=== PATIENT | male | born 1960 ===

== ENCOUNTER → 2020-07-13 09:53 | Outpatient (BNVA) | payer BC, SELFPAY | PROVIDERS: PCP Internal Medicine; Referring Provider Internal Medicine; Visit Provider Urology | DX: Z76.89 Persons encountering health services in other specified circumstances (principal) ==

== ENCOUNTER → 2022-03-14 09:42 | Outpatient (BNVA) | payer BC, SELFPAY | PROVIDERS: Visit Provider Urology | DX: N40.1 Benign prostatic hyperplasia with lower urinary tract symptoms (principal); R35.1 Nocturia | CPT/HCPCS: 51798 ==

== ENCOUNTER → 2022-08-23 12:46 | Outpatient (BNVA) | payer BC, SELFPAY | PROVIDERS: PCP Internal Medicine; Visit Provider Urology | DX: Z13.89 Encounter for screening for other disorder (principal) ==

== ENCOUNTER 2023-02-21 08:35 | Outpatient (AMB) | payer BC, SELFPAY ==
--- NOTE | 2023-02-21 08:44 | MHC.OFFVIS ---
Intake Intake Visit Reasons: 6M PSA(set) Senior Administrative Assistant Required: No Allergies No Known Allergies Allergy (Verified 02/21/23 08:44) HPI HPI Comments History of Present Illness Details Hakan is a pleasant male. He is a patient of Dr. Theodore. He seen for the following urologic conditions - lower urinary tract symptoms - elevated PSA Telemedicine Evaluation 15 min Consultation Doximity Saji Video attempted PSA trending upwards Discussed prostate biopsy At this point in time he would prefer alternate option DNA evaluation of urine is available He has an interest in this test Will be ordered 4 week follow-up for review Elevated PSA and BPH He presents for - further evaluation of elevated PSA - in addition to prostate symptoms, particularly nocturia 2-3 times per night Current management is - tamsulosin 0.4 Laboratory investigations include - a total PSA evaluation. 10/02 4.2, 06/04 4.5, 03/06 5.0, 08/07 4.1, 02/04 4.8 Individualized Prostate Cancer Risk Calculator - father had prostate cancer age 70 - 5-10% high risk A TRUS biopsy - has not been performed NEELAM average size firm no nodules Symptoms include - nocturia, weakness of stream which are progressive Overall symptoms are mild Associated conditions dyslipidemia yes Therapeutic plan will be - PSA variable with slow rise PFSH Medical History HTN (hypertension) Hypothyroidism Tubular adenoma Surgical History History of hernia repair History of vasectomy Review of Systems Const All systems reviewed & are unremarkable except as noted in HPI and below Reports no additional complaints Resp Reports no additional complaints GI Reports no additional complaints Reports as per HPI Musc Reports no additional complaints Physical Exam Telemedicine evaluation Appropriate responses Regular breathing rate and rhythm HEENT Head: Yes normal to inspection Ears: hearing grossly normal bilaterally Eyes General: appearance normal, both eyes and all related structures Neck Neck: Yes normal visual inspection Chest Chest palpation & inspection: normal inspection of the chest Resp Effort & Inspection: normal respiratory effort and able to speak in complete sentences Assessment & Plan Assessment & Plan (1) Elevated PSA: Code(s): R97.20 - Elevated prostate specific antigen [PSA] Plan UroDx Patient Instructions: Imaging studies, laboratory and physical exam results were discussed and reviewed in detail. No major barriers to patient understanding were identified. An opportunity to ask questions regarding the treatment plan was provided. All questions were answered. The patient expressed understanding and agreement with the above treatment plan. The patient is aware they should contact our office by phone for worsening of their current condition or the appearance of new urologic symptoms. Compliance is encouraged with any medications and followup testing that is ordered. It is a privilege to participate in the urologic care of your patient. If you have any questions or concerns regarding treatment for the above conditions, or other urologic issues, please do not hesitate to contact me. The office telephone contact is [phone]. This note is constructed using voice recognition software. While every effort has been made to ensure accuracy plug cutter errors may have been included. Yours sincerely, Dr Herbert Moser MD, [facility] - Urology Providers of Expert, Compassionate Care for the Genitourinary System Telehealth Telehealth Location of provider rendering services: practice address Location of patient: address on file Patient Identification confirmed using: Name, : Yes Telehealth method: video Patient verbally consented to treatment: Yes Patient verbally consented to billing insurance company: Yes Patient informed of any privacy concerns related to visit: Yes Coding Level of Care Code Tele Est Pt Level 3 (42399) Diagnoses Elevated PSA R97.20
== END 2023-02-21 10:19 | disposition home or self-care (01) ==
LOC: HO.HUSH 08:35
PROVIDERS: PCP Internal Medicine; Visit Provider Urology
DX: R97.20 Elevated prostate specific antigen [PSA] (principal)
CPT/HCPCS: 99213

== ENCOUNTER → 2023-02-21 08:35 | Outpatient (BNVA) | payer BC, SELFPAY | PROVIDERS: PCP Internal Medicine; Visit Provider Urology ==

== ENCOUNTER 2023-03-28 09:15 | Outpatient (AMB) | payer BC, SELFPAY ==
--- NOTE | 2023-03-28 09:33 | A.OFFVIS_ITS ---
Intake Intake Visit Reasons: 1m follow up Intake Note: Patient is present for Telephone Follow up Urology Med: None Antibiotic Allergy: None Blood Thinner: None Ph [facility]: [facility] Allergies No Known Allergies Allergy (Verified 03/28/23 09:34) HPI HPI Comments History of Present Illness Details Hakan is a pleasant male. He is a patient of Dr. Theodore. He seen for the following urologic conditions - lower urinary tract symptoms - elevated PSA Telemedicine Evaluation 15 min Consultation Doximity Saji Video attempted ExoDX of urine perform Low risk PSA 6m Elevated PSA and BPH He presents for - further evaluation of elevated PSA - in addition to prostate symptoms, particularly nocturia 2-3 times per night Current management is - tamsulosin 0.4 Laboratory investigations include - a total PSA evaluation. 10/02 4.2, 06/04 4.5, 03/06 5.0, 08/07 4.1, 02/04 4.8 Individualized Prostate Cancer Risk Calculator - father had prostate cancer age 70 - 5-10% high risk UroDX - 03/07 15 - low risk A TRUS biopsy - has not been performed NEELAM average size firm no nodules Symptoms include - nocturia, weakness of stream which are progressive Overall symptoms are mild Associated conditions dyslipidemia yes Therapeutic plan will be - PSA variable with slow rise PFSH Medical History Hypothyroidism Tubular adenoma HTN (hypertension) Surgical History History of hernia repair History of vasectomy Review of Systems Const All systems reviewed & are unremarkable except as noted in HPI and below Reports no additional complaints Resp Reports no additional complaints GI Reports no additional complaints Reports as per HPI Musc Reports no additional complaints Physical Exam Telemedicine evaluation Appropriate responses Regular breathing rate and rhythm HEENT Head: Yes normal to inspection Ears: hearing grossly normal bilaterally Eyes General: appearance normal, both eyes and all related structures Neck Neck: Yes normal visual inspection Chest Chest palpation & inspection: normal inspection of the chest Resp Effort & Inspection: normal respiratory effort and able to speak in complete sentences Assessment & Plan Assessment & Plan (1) Nocturia associated with benign prostatic hyperplasia: Code(s): N40.1 - Benign prostatic hyperplasia with lower urinary tract symptoms; R35.1 - Nocturia (2) Elevated PSA: Code(s): R97.20 - Elevated prostate specific antigen [PSA] Plan Six month follow-up bladder ultrasound PSA Orders: Orders US bladder 6 Months N40.1 - Benign prostatic hyperplasia with lower urinary tract symptoms, R35.1 - Nocturia, R39.12 - Poor urinary stream PSA,Total (Free>4and<10) 6 Months N40.1 - Benign prostatic hyperplasia with lower urinary tract symptoms, R35.1 - Nocturia Patient Instructions: Imaging studies, laboratory and physical exam results were discussed and reviewed in detail. No major barriers to patient understanding were identified. An opportunity to ask questions regarding the treatment plan was provided. All questions were answered. The patient expressed understanding and agreement with the above treatment plan. The patient is aware they should contact our office by phone for worsening of their current condition or the appearance of new urologic symptoms. Compliance is encouraged with any medications and followup testing that is ordered. It is a privilege to participate in the urologic care of your patient. If you have any questions or concerns regarding treatment for the above conditions, or other urologic issues, please do not hesitate to contact me. The office telephone contact is [phone]. This note is constructed using voice recognition software. While every effort has been made to ensure accuracy textile clothing and footwear mechanic errors may have been included. Yours sincerely, Dr Herbert Moser MD, [facility] - Urology Providers of Expert, Compassionate Care for the Genitourinary System Telehealth Telehealth Location of provider rendering services: practice address Location of patient: address on file Patient Identification confirmed using: Name, : Yes Telehealth method: video Patient verbally consented to treatment: Yes Patient verbally consented to billing insurance company: Yes Patient informed of any privacy concerns related to visit: Yes Coding Level of Care Code Tele Est Pt Level 3 (01350) Diagnoses Nocturia associated with benign prostatic hyperplasia N40.1; R35.1 Elevated PSA R97.20
== END 2023-03-28 09:56 | disposition home or self-care (01) ==
LOC: HO.HUSH 09:15
PROVIDERS: PCP Internal Medicine; Visit Provider Urology
DX: N40.1 Benign prostatic hyperplasia with lower urinary tract symptoms (principal); R35.1 Nocturia; R97.20 Elevated prostate specific antigen [PSA]
CPT/HCPCS: 99213

== ENCOUNTER → 2023-03-28 09:15 | Outpatient (BNVA) | payer BC, SELFPAY | PROVIDERS: PCP Internal Medicine; Visit Provider Urology ==

== ENCOUNTER 2023-09-17 10:56 | Outpatient (REF) | payer BC, SELFPAY ==
--- NOTE | ~2023-09-17 | US_ITS ---
EXAMINATION: US PELVIS LIMITED (BLADDER) CLINICAL INFORMATION: Poor urinary stream. COMPARISON: None available. TECHNIQUE: Real-time imaging of the bladder. FINDINGS: BLADDER: Moderately distended. Diffuse trabeculations and mild thickening of the bladder wall. Bilateral ureteral jets are demonstrated. Prevoid bladder volume is 191 mL. Postvoid bladder volume is 45.3 mL. The prostate volume is 27.7 mL. US/US bladder IMPRESSION: 1. Diffuse trabeculations and mild thickening of the bladder wall. 2. Postvoid bladder volume is 45.3 mL. 3. Prostate volume is 27.7 mL.
== END 2023-09-17 10:57 | disposition home or self-care (01) ==
LOC: HO.US 10:56
PROVIDERS: PCP Internal Medicine; Visit Provider Urology
DX: R39.12 Poor urinary stream (principal); R35.81 Nocturnal polyuria; N40.1 Benign prostatic hyperplasia with lower urinary tract symptoms
CPT/HCPCS: 76857

== ENCOUNTER 2023-09-27 09:37 | Outpatient (AMB) | payer BC, SELFPAY ==
--- NOTE | 2023-09-27 09:42 | A.OFFVIS_ITS ---
Intake Intake Visit Reasons: 6m/US/PSA/PVR(set) Confirmed Intake Note: Patient presents today for a follow-up on PSA/PVR Meds- None Allergies to Antibiotic- No Known Allergies Blood Thinner- None Post Void Residual:36 ml Accompanied by: Self / Same As Patient Allergies No Known Allergies Allergy (Verified 09/27/23 09:48) HPI HPI Comments History of Present Illness Details Hakan is a pleasant male. He is a patient of Dr. Theodore. He seen for the following urologic conditions - lower urinary tract symptoms - elevated PSA Follow-up PSA - 4.7 Continue tamsulosin Previously we have discussed finasteride Continue with PSA surveillance Elevated PSA and BPH He presents for - further evaluation of elevated PSA - in addition to prostate symptoms, particularly nocturia 2-3 times per night Current management is - tamsulosin 0.4 Laboratory investigations include - a total PSA evaluation. 10/02 4.2, 06/04 4.5, 03/06 5.0, 08/07 4.1, 02/04 4.8, 08/08 4.7 Individualized Prostate Cancer Risk Calculator - father had prostate cancer age 70 - 5-10% high risk UroDX - 03/07 15 - low risk A TRUS biopsy - has not been performed NEELAM average size firm no nodules Symptoms include - nocturia, weakness of stream which are progressive Overall symptoms are mild Associated conditions dyslipidemia yes Therapeutic plan will be - PSA variable with slow rise PFSH Medical History Hypothyroidism Tubular adenoma HTN (hypertension) Surgical History History of hernia repair History of vasectomy Review of Systems Const Denies chills and Denies fever(s) Card Reports no additional complaints and Denies syncope Resp Denies cough GI Denies abdominal pain and Denies heartburn Reports as per HPI and Denies change in libido Neuro Denies syncope Psych Denies change in libido Endo Denies change in libido Physical Exam Const General: cooperative, healthy appearing, comfortable and no acute distress Orientation/consciousness: patient oriented x3 HEENT Face and sinus: Yes normal facial exam Mouth: moist mucous membranes Neck Neck: Yes normal visual inspection, Yes full ROM and Yes trachea midline Chest Chest palpation & inspection: normal inspection of the chest Resp Effort & Inspection: normal respiratory effort, able to speak in complete sentences and no respiratory distress GI Inspection: Yes normal to inspection Back/Spine/Pelvis Cervical Spine: normal cervical lordosis Thoracic/Lumbar Spine: thoracic and lumbar spine normal to inspection Skin General skin exam: no rashes or lesions noted Neuro General: patient oriented x3, gait normal, tone normal and moves all extremities Extrem General: Yes normal to inspection and Yes capillary refill normal Office Procedures Post Void Residual Post Residual Void Post Void Residual (PVR): [id number] Void Residual by ultrasound Assessment & Plan Assessment & Plan (1) Nocturia associated with benign prostatic hyperplasia: Code(s): N40.1 - Benign prostatic hyperplasia with lower urinary tract symptoms; R35.1 - Nocturia (2) Elevated PSA: Code(s): R97.20 - Elevated prostate specific antigen [PSA] Plan Six-month follow-up Orders: Orders PSA,Total (Free>4and<10) 6 Months R97.20 - Elevated prostate specific antigen [P SA] AMB Post Void Residual by ultrasound Today R33.9 - Retention of urine, unspecified Patient Instructions: Imaging studies, laboratory and physical exam results were discussed and reviewed in detail. No major barriers to patient understanding were identified. An opportunity to ask questions regarding the treatment plan was provided. All questions were answered. The patient expressed understanding and agreement with the above treatment plan. The patient is aware they should contact our office by phone for worsening of their current condition or the appearance of new urologic symptoms. Compliance is encouraged with any medications and followup testing that is ordered. It is a privilege to participate in the urologic care of your patient. If you have any questions or concerns regarding treatment for the above conditions, or other urologic issues, please do not hesitate to contact me. The office tele phone contact is [phone]. This note is constructed using voice recognition software. While every effort has been made to ensure accuracy parachute line tier errors may have been included. Yours sincerely, Dr Herbert Moser MD, [facility] - Urology Providers of Expert, Compassionate Care for the Genitourinary System Coding Level of Care Code Est Pt Level 3 (19378) Diagnoses Nocturia associated with benign prostatic hyperplasia N40.1; R35.1 Elevated PSA R97.20 CPT Codes Post Residual Void - PVR CPT Code: 81552-Hpqb Void Residual by ultrasound ([id number])
== END 2023-09-27 10:40 | disposition home or self-care (01) ==
PROVIDERS: PCP Internal Medicine; Visit Provider Urology
DX: N40.1 Benign prostatic hyperplasia with lower urinary tract symptoms (principal); R35.1 Nocturia; R97.20 Elevated prostate specific antigen [PSA]
CPT/HCPCS: 99213

== ENCOUNTER → 2023-09-27 09:37 | Outpatient (BNVA) | payer BC, SELFPAY | PROVIDERS: PCP Internal Medicine; Visit Provider Urology | DX: N40.1 Benign prostatic hyperplasia with lower urinary tract symptoms (principal); R35.1 Nocturia; R33.8 Other retention of urine; R97.20 Elevated prostate specific antigen [PSA] | CPT/HCPCS: 51798 ==